=== PATIENT | female | born 1990 | race Caucasian/White ===

== ENCOUNTER 2021-11-16 08:35 | Inpatient (IN) | payer BC ==
[~2021-11-16] VITALS: Ht 167.6 cm; Wt 77.1 kg
[~2021-11-16 08:35] MED LIST: ALLER-TEC10 MG PO; FERROUS SULFAT325 MG PO; PRENAPLUS TABL1 EACH PO
--- NOTE | 2021-11-16 14:19 | PR ---
[facility] [address] [facility] [place], [place] [address] Signed Progress Notes IP Datetime Report Generated by CPN: 11/16/2021 14:19 PROGRESS NOTES: [id number] Impression: Normal Progression of Labor Procedures: Sterile Vag Exam Plan: Continue Present Management VITAL SIGNS: [id number] Vital Signs: Reviewed; Within Normal Limits EXAM: [id number] Dilatation: 5.0 Effacement: 90 Station: -1 Contractions: q 3 to 5 min MEMBRANES: [id number] Amniotic Fluid Color: Clear Comments: More uncomfortable. Progressing well. Will continue. FETUS A: [id number] FHR Baseline: 125 Variability: Moderate 6-25bpm Accelerations: 15X15 Decelerations: None FHR Category: Category I Presentation: Vertex Comments on Fetus A: No evidence of metabolic acidosis FETUS B: [id number] Signing Physician: Nikki Whitt MD Copies: ~ *Electronically Signed* 11/16/21 1419 NIKKI WHITT MD PATIENT NAME: ANGELICMARCUSCHRISTI BRADY PROGRESS NOTE DATE OF : 89 PHYSICIAN: NIKKI WHITT MD RPT #: [id number] REPORT IS CONFIDENTIAL AND NOT TO BE RELEASED WITHOUT AUTHORIZATION
--- NOTE | 2021-11-16 15:20 | PR ---
[facility] [address] [facility] [place], [place] [address] Signed Progress Notes IP Datetime Report Generated by CPN: 11/16/2021 15:20 PROGRESS NOTES: [id number] Impression: Normal Progression of Labor Procedures: Sterile Vag Exam Plan: Continue Present Management VITAL SIGNS: [id number] Vital Signs: Reviewed; Within Normal Limits EXAM: [id number] Dilatation: 8.0 Effacement: 90 Station: 0 Contractions: q 3 to 5 min MEMBRANES: [id number] Amniotic Fluid Color: Clear Comments: Progressing well. Will continue. FETUS A: [id number] FHR Baseline: 125 Variability: Moderate 6-25bpm Accelerations: 15X15 Decelerations: None FHR Category: Category I Presentation: Vertex Comments on Fetus A: No evidence of metabolic acidosis FETUS B: [id number] Signing Physician: Nikki Whitt MD Copies: ~ *Electronically Signed* 11/16/21 1520 NIKKI WHITT MD PATIENT NAME: MARCUS ATWOOD CAITLYN PROGRESS NOTE DATE OF : 89 PHYSICIAN: NIKKI WHITT MD RPT #: [id number] REPORT IS CONFIDENTIAL AND NOT TO BE RELEASED WITHOUT AUTHORIZATION
--- NOTE | 2021-11-17 08:50 | PR ---
[facility] [address] [facility] [place] [facility] [place], [place] [address] Signed PP Progress Notes Datetime Report Generated by CPN: 11/17/2021 08:50 SUBJECTIVE: [id number] Pain: Within Normal Limits Vital Signs: [id number] Vital Signs: Reviewed; Within Normal Limits EXAM: Ongoing Cardiovascular: Not Done Respiratory: Not Done Abdomen/Uterus: Abnormal Lochia: Normal Vulva/Perineum: Not Done Breasts: Not Done CVA Tenderness: Not Done Extremities: Normal Incision: Not Applicable Progress: Normal Exam Comments: Fundus firm, NT @ U-1. H/H 10.8/31.5, WBC 12.5, plat 130k IMPRESSION/PLAN/PROCEDURES: [id number] Impression: Normal Progression Other Impression: anemia Plan: Discharge Procedures: None Progress Notes: Doing well. She would like discharge at the 24 hr garth which is reasonable. Signing Physician: Nikki Whitt MD Copies: ~ *Electronically Signed* 11/17/21 0850 NIKKI WHITT MD PATIENT NAME: MARCUS ATWOOD PROGRESS NOTE DATE OF : 89 PHYSICIAN: NIKKI WHITT MD RPT #: [id number] REPORT IS CONFIDENTIAL AND NOT TO BE RELEASED WITHOUT AUTHORIZATION
== END 2021-11-17 17:45 | disposition home or self-care (01) | DRG 807 ==
LOC: FBCO 08:35 → FBC 08:48
PROVIDERS: ADMIT Obstetrics & Gynecology; ATTEND Obstetrics & Gynecology
PROC: 10E0XZZ Delivery of Products of Conception, External Approach (ICD-10-PCS; principal; 2021-11-16)
PROC: 0KQM0ZZ Repair Perineum Muscle, Open Approach (ICD-10-PCS; 2021-11-16)
DX: O42.02 Full-term premature rupture of membranes, onset of labor within 24 hours of rupture (principal); Z37.0 Single live birth; Z20.822 Contact with and (suspected) exposure to COVID-19; O70.1 Second degree perineal laceration during delivery; Z3A.39 39 weeks gestation of pregnancy; Z88.0 Allergy status to penicillin; Z88.1 Allergy status to other antibiotic agents; Z88.8 Allergy status to other drugs, medicaments and biological substances; Z98.890 Other specified postprocedural states; Z87.891 Personal history of nicotine dependence; O99.824 Streptococcus B carrier state complicating childbirth; O69.1XX0 Labor and delivery complicated by cord around neck, with compression, not applicable or unspecified; O99.02 Anemia complicating childbirth
CPT/HCPCS: 36415; 85027; 86850; 86900; 86901; 87502; A9270; C9803; J0690; J2590; J7121; U0003